=== PATIENT | female | born 1980 | race Caucasian/White ===

== ENCOUNTER → 2016-09-27 | Outpatient (CLI) | payer MEDICARE, OTHER ==
--- NOTE | 2016-09-27 15:02 | FL ---
EXAMINATION TYPE: FL UGI air DATE OF EXAM: 09/27/2016 9:23 AM COMPARISON: NONE HISTORY: Gastroesophageal reflux pain unrelated TECHNIQUE: A double contrast UGI study is performed. FINDINGS: Esophagus dilates normal caliber has normal contour to the gastroesophageal junction. Gastr oesophageal junction opens to normal caliber. Note is made of gastroesophageal reflux during the exam ination. There is complete stripping of the esophageal bolus during the horizontal drinking position. Fundus body and antrum of the stomach visualized appears normal. There is prompt uptake and into the normally positioned duodenal cap and sweep. Duodenal folds within the proximal second portion of the duodenum are somewhat prominent. Correlate for mild duodenitis. The more distal duodenal folds as wel l as visualized proximal jejunum is unremarkable. IMPRESSIONS: 1. Gastroesophageal reflux. 2. Mild duodenitis.
--- NOTE | 2016-09-27 16:07 | US ---
EXAMINATION TYPE: US gallbladder DATE OF EXAM: 09/27/2016 8:24 AM COMPARISON: NONE CLINICAL HISTORY: R10.84 ABD PAIN. Abdomen pain x 1 month, obese patient EXAM MEASUREMENTS: Liver Length: 18.4 cm Gallbladder Wall: 0.2 cm CBD: 0.3 cm Right Kidney: 11.9 x 4.8 x 5.7 cm Pancreas: visualized portions wnl, tail obscured by overlying midline bowel gas Liver: enlarged at 18.4cm, heterogeneous echotexture with 1.3cm hypoechoic area adjacent to gallblad maude, increased echogenicity throughout Gallbladder: wnl Evidence for sonographic Mckeon's sign: no CBD: visualized portions wnl, limited by overlying bowel gas Right Kidney: wnl IMPRESSION: 1. Hepatomegaly. 2. No additional suspicious changes right upper quadrant ultrasound
== END | disposition home or self-care (01) ==
LOC: RADUSWWP 07:54
PROVIDERS: ATTEND Family Medicine
DX: R16.0 Hepatomegaly, not elsewhere classified (principal); R10.84 Generalized abdominal pain; K21.9 Gastro-esophageal reflux disease without esophagitis; K29.80 Duodenitis without bleeding
CPT/HCPCS: 74246; 76705

== ENCOUNTER 2018-08-11 18:47 | Emergency (ER) | payer MEDICARE, OTHER ==
[2018-08-11 18:58] VITALS: TEMP 98.3
--- NOTE | 2018-08-11 19:22 | ED ---
General Adult HPI - General Source: patient, RN notes reviewed Mode of arrival: ambulatory Limitations: no limitations <Agustín Gorman - Last Filed: 09/02/18 20:47> <Daryl Figueredo - Last Filed: 09/03/18 00:44> - General Chief complaint: Psychiatric Symptoms Stated complaint: petition Time Seen by Provider: 08/11/18 18:55 - History of Present Illness Initial comments: This is a 37-year-old female presents emergency room in the custody of the police. Police petitioned her. called the police to a well check on the patient and they found her extremely upset and hyperventilating and stating she wanted to kill himself. Patient tells me that her has second life with a girlfriend and separate accounts with the girl and she can't believe her whole life is a sham. Patient states she has been thinking about killing himself and she has been really trying hard not to kill himself. Patient denies any attempt today. Patient denies any drug use or alcohol use. Patient denies any physical complaints today. Patient denies headache patient denies numbness weakness. Patient denies any chest pain difficult breathing shortness of breath. Patient denies any abdominal pain patient denies nausea vomiting diarrhea. Patient denies any fever chills or cough. (Agustín Gorman) - Related Data Home Medications Medication Instructions Recorded Confirmed Albuterol Inhaler [Ventolin Hfa 2 puff INHALATION RT-TID 08/11/18 08/11/18 Inhaler] QUEtiapine [SEROquel] 100 mg PO HS 08/11/18 08/11/18 Allergies Allergy/AdvReac Type Severity Reaction Status Date / Time codeine AdvReac Unknown Verified 08/11/18 19:15 Review of Systems ROS Other: All systems not noted in ROS Statement are negative. <Agustín Gorman - Last Filed: 09/02/18 20:47> ROS Other: All systems not noted in ROS Statement are negative. <Daryl Figueredo - Last Filed: 09/03/18 00:44> ROS Statement: Those systems with pertinent positive or pertinent negative responses have been documented in the HPI. Past Medical History Past Medical History: Asthma History of Any Multi-Drug Resistant Organisms: None Reported Past Surgical History: Orthopedic Surgery, Tubal Ligation Past Psychological History: Bipolar, Depression Smoking Status: Current every day smoker Past Alcohol Use History: Occasional Past Drug Use History: Marijuana <Agustín Gorman - Last Filed: 09/02/18 20:47> General Exam Limitations: no limitations <Agustín Gorman - Last Filed: 09/02/18 20:47> - General Exam Comments Initial Comments: GENERAL: Patient is well-developed and well-nourished. Patient is nontoxic and well- hydrated and is in mild distress. Patient is crying the whole time I do my interview. ENT: Neck is soft and supple. No significant lymphadenopathy is noted. Oropharynx is clear. Moist mucous membranes. Neck has full range of motion without eliciting any pain. EYES: The sclera were anicteric and conjunctiva were pink and moist. Extraocular movements were intact and pupils were equal round and reactive to light. Eyelids were unremarkable. PULMONARY: Unlabored respirations. Good breath sounds bilaterally. No audible rales rhonchi or wheezing was noted. CARDIOVASCULAR: There is a regular rate and rhythm without any murmurs gallops or rubs. ABDOMEN: Soft and nontender with normal bowel sounds. SKIN: Skin is clear with no lesions or rashes and otherwise unremarkable. NEUROLOGIC: Patient is alert and oriented x3. Cranial nerves II through XII are grossly intact. Motor and sensory are also intact. Normal speech, volume and content. Symmetrical smile. MUSCULOSKELETAL: Normal extremities with adequate strength and full range of motion LYMPHATICS: No significant lymphadenopathy is noted PSYCHIATRIC: Patient is extremely anxious and stating she is suicidal. (Agustín Gorman) Course Vital Signs 08/11/18 08/12/18 18:54 04:00 Temperature 98.3 F Pulse Rate 110 H 77 Respiratory 26 H 16 Rate Blood Pressure 128/44 100/49 O2 Sat by Pulse 99 99 Oximetry Medical Decision Making - Lab Data Result diagrams: 08/12/18 01:20 08/12/18 01:20 <Agustín Gorman - Last Filed: 09/02/18 20:47> - Lab Data Result diagrams: 08/12/18 01:20 08/12/18 01:20 <Daryl Figueredo - Last Filed: 09/03/18 00:44> - Medical Decision Making Dr. Figueredo will be taking over the care of this patient at 9 PM (Agustín Gorman) Patient evaluate bedside and resting comfortably. Clinical service for left patient. Patient reevaluated found to still medical condition. Patient is less anxious. stable medical condition at Bedside. Plan for EPS was for transfer patient to outpatient psychiatric facility. (Daryl Figueredo) - Lab Data Lab Results 08/11/18 08/11/18 08/11/18 Range/Units 20:15 20:15 20:15 WBC (3.8-10.6) k/uL RBC (3.80-5.40) m/uL Hgb (11.4-16.0) gm/dL Hct (34.0-46.0) % MCV (80.0-100.0) fL MCH (25.0-35.0) pg MCHC (31.0-37.0) g/dL RDW (11.5-15.5) % Plt Count (150-450) k/uL Sodium (137-145) mmol/L Potassium (3.5-5.1) mmol/L Chloride (98-107) mmol/L Carbon Dioxide (22-30) mmol/L Anion Gap mmol/L BUN (7-17) mg/dL Creatinine (0.52-1.04) mg/dL Est GFR (CKD-EPI)AfAm (>60 ml/min/1.73 sqM) Est GFR (CKD-EPI)NonAf (>60 ml/min/1.73 sqM) Glucose (74-99) mg/dL Calcium (8.4-10.2) mg/dL Total Bilirubin (0.2-1.3) mg/dL AST (14-36) U/L ALT (9-52) U/L Alkaline Phosphatase (38-126) U/L Total Protein (6.3-8.2) g/dL Albumin (3.5-5.0) g/dL TSH (0.465-4.680) mIU/L Urine Color Yellow Urine Appearance Turbid H (Clear) Urine pH 5.5 (5.0-8.0) Ur Specific [place] 1.024 (1.001-1.035) Urine Protein 1+ H (Negative) Urine Glucose (UA) Negative (Negative) Urine Ketones Negative (Negative) Urine Blood Small H (Negative) Urine Nitrite Negative (Negative) Urine Bilirubin Negative (Negative) Urine Urobilinogen <2.0 (<2.0) mg/dL Ur Leukocyte Esterase Trace H (Negative) Urine RBC 1 (0-5) /hpf Urine WBC 5 (0-5) /hpf Ur Squamous Epith Cells 35 H (0-4) /hpf Calcium Oxalate Crystal Occasional H (None) /hpf Urine Mucus Many H (None) /hpf Urine HCG, Qual Not Detected (Not Detectd) Urine Opiates Screen Not Detected (NotDetected) Ur Oxycodone Screen Not Detected (NotDetected) Urine Methadone Screen Not Detected (NotDetected) Ur Propoxyphene Screen Not Detected (NotDetected) Ur Barbiturates Screen Not Detected (NotDetected) U Tricyclic Antidepress Not Detected (NotDetected) Ur Phencyclidine Scrn Not Detected (NotDetected) Ur Amphetamines Screen Detected H (NotDetected) U Methamphetamines Scrn Detected H (NotDetected) U Benzodiazepines Scrn Detected H (NotDetected) Urine Cocaine Screen Not Detected (NotDetected) U Marijuana (THC) Screen Detected H (NotDetected) Serum Alcohol mg/dL 08/12/18 08/12/18 08/12/18 Range/Units 01:20 01:20 04:30 WBC 10.1 (3.8-10.6) k/uL RBC 4.68 (3.80-5.40) m/uL Hgb 14.3 (11.4-16.0) gm/dL Hct 41.9 (34.0-46.0) % MCV 89.5 (80.0-100.0) fL MCH 30.4 (25.0-35.0) pg MCHC 34.0 (31.0-37.0) g/dL RDW 12.6 (11.5-15.5) % Plt Count 210 (150-450) k/uL Sodium 139 (137-145) mmol/L Potassium 3.3 L (3.5-5.1) mmol/L Chloride 108 H (98-107) mmol/L Carbon Dioxide 26 (22-30) mmol/L Anion Gap 5 mmol/L BUN 15 (7-17) mg/dL Creatinine 0.67 (0.52-1.04) mg/dL Est GFR (CKD-EPI)AfAm >90 (>60 ml/min/1.73 sqM) Est GFR (CKD-EPI)NonAf >90 (>60 ml/min/1.73 sqM) Glucose 103 H (74-99) mg/dL Calcium 8.6 (8.4-10.2) mg/dL Total Bilirubin 0.9 (0.2-1.3) mg/dL AST 45 H (14-36) U/L ALT 43 (9-52) U/L Alkaline Phosphatase 49 (38-126) U/L Total Protein 5.6 L (6.3-8.2) g/dL Albumin 3.1 L (3.5-5.0) g/dL TSH 2.390 (0.465-4.680) mIU/L Urine Color Urine Appearance (Clear) Urine pH (5.0-8.0) Ur Specific [place] (1.001-1.035) Urine Protein (Negative) Urine Glucose (UA) (Negative) Urine Ketones (Negative) Urine Blood (Negative) Urine Nitrite (Negative) Urine Bilirubin (Negative) Urine Urobilinogen (<2.0) mg/dL Ur Leukocyte Esterase (Negative) Urine RBC (0-5) /hpf Urine WBC (0-5) /hpf Ur Squamous Epith Cells (0-4) /hpf Calcium Oxalate Crystal (None) /hpf Urine Mucus (None) /hpf Urine HCG, Qual (Not Detectd) Urine Opiates Screen (NotDetected) Ur Oxycodone Screen (NotDetected) Urine Methadone Screen (NotDetected) Ur Propoxyphene Screen (NotDetected) Ur Barbiturates Screen (NotDetected) U Tricyclic Antidepress (NotDetected) Ur Phencyclidine Scrn (NotDetected) Ur Amphetamines Screen (NotDetected) U Methamphetamines Scrn (NotDetected) U Benzodiazepines Scrn (NotDetected) Urine Cocaine Screen (NotDetected) U Marijuana (THC) Screen (NotDetected) Serum Alcohol <10 mg/dL Disposition <Agustín Gorman - Last Filed: 09/02/18 20:47> Time of Disposition: 00:44 <Bayudan,Daryl D - Last Filed: 09/03/18 00:44> Clinical Impression: Suicidal ideation Disposition: TRANSFER TO PSYCH HOSP/UNIT Condition: Fair Referrals: Cuauhtemoc Samaniego MD [Primary Care Provider] - 1-2 days
[2018-08-11 20:52] LABS: Amphetamine Screen,Urine Detected (NotDetected); Barbiturate Screen,Urine Not Detected (NotDetected); Benzodiazepines Screen,Urine Detected (NotDetected); Cocaine Screen,Urine Not Detected (NotDetected); Methadone Screen, Urine Not Detected (NotDetected); Opiate Screen,Urine Not Detected (NotDetected); Oxycodone Screen, Urine Not Detected (NotDetected); Phencyclidine Screen,Urine Not Detected (NotDetected); Tricyclic Antidepressant,Urine Not Detected (NotDetected); Urn Cannabinoid Scrn Detected (NotDetected)
[2018-08-11] MEDS ORDERED: LORazepam 1 MG TAB PO STA (21:12)
[2018-08-12 01:47] LABS: HCT 41.9 % (34.0-46.0); HGB 14.3 gm/dL (11.4-16.0); MCH 30.4 pg (25.0-35.0); MCV 89.5 fL (80.0-100.0); Mean Platelet Volume 9.2; Platelet Count 210 k/uL (150-450); RBC 4.68 m/uL (3.80-5.40); RDW 12.6 % (11.5-15.5); WBC 10.1 k/uL (3.8-10.6)
[2018-08-12 01:54] LABS: ALT 43 U/L (9-52); AST 45 U/L (14-36); Albumin 3.1 g/dL (3.5-5.0); Alkaline Phosphatase 49 U/L (38-126); Anion Gap 5 mmol/L; Blood Urea Nitrogen 15 mg/dL (7-17); Calcium 8.6 mg/dL (8.4-10.2); Carbon Dioxide 26 mmol/L (22-30); Chloride 108 mmol/L (98-107); Glucose 103 mg/dL (74-99); Potassium 3.3 mmol/L (3.5-5.1); Sodium 139 mmol/L (137-145); Total Bilirubin 0.9 mg/dL (0.2-1.3); Total Protein 5.6 g/dL (6.3-8.2)
[2018-08-12 02:00] LABS: Appearance,Urine Turbid (Clear); Bilirubin,Urine Negative (Negative); Blood,Urine Small (Negative); Calcium Oxalate Crystals,Urine Occasional /hpf; Color,Urine Yellow; Glucose,Urine (UA) Negative (Negative); Ketones,Urine Negative (Negative); Leukocyte Esterase,Urine Trace (Negative); Mucus,Urine Many /hpf; Nitrite,Urine Negative (Negative); PH, Urine 5.5 (5.0-8.0); Protein,Urine 1+ (Negative); RBC,Urine 1 /hpf (0-5); Specific Gravity,Urine 1.024 (1.001-1.035); Squamous Epithelial Cell,Urine 35 /hpf (0-4); Urobilinogen,Urine <2.0 mg/dL (<2.0); WBC,Urine 5 /hpf (0-5)
[2018-08-12 04:30] VITALS: BP 100/49; PULSE 77; RESP 16
== END 2018-08-12 10:15 ==
LOC: EC 18:47
DX: R45.851 Suicidal ideations (principal); J45.909 Unspecified asthma, uncomplicated; F31.9 Bipolar disorder, unspecified; F17.200 Nicotine dependence, unspecified, uncomplicated; Z79.899 Other long term (current) drug therapy; Z88.5 Allergy status to narcotic agent
CPT/HCPCS: 82075; 36415; 80053; 84443; 85027; 81001; 81025; 80306; 99285; G0480; 80320